=== PATIENT | male | born 1995 | race Two or more races ===

== ENCOUNTER 2018-07-02 21:25 | Emergency (ER) | payer SELFPAY ==
[~2018-07-02] VITALS: Ht 172.7 cm; Wt 86.2 kg
[~2018-07-02 21:25] MED LIST: NKM
[2018-07-02 21:52] VITALS: BP 138/79
[2018-07-02 22:00] VITALS: BP 138/79
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
== END 2018-07-02 22:00 | disposition left against medical advice (07) ==
LOC: EDBD 21:25 → EMR 21:38
DX: S09.90XA Unspecified injury of head, initial encounter (principal); M25.542 Pain in joints of left hand; M25.541 Pain in joints of right hand; Y04.8XXA Assault by other bodily force, initial encounter; Z88.0 Allergy status to penicillin
CPT/HCPCS: 99282